=== PATIENT | male | born 1985 | race Caucasian/White ===

== ENCOUNTER 2017-02-26 15:14 | Inpatient (IN) | payer OTHER ==
[~2017-02-26] VITALS: Ht 177.8 cm; Wt 97.9 kg
[~2017-02-26 15:14] MED LIST: CEFAZOLIN IV 2,000 MG in DEXTROSE 5% 50ML 50 ML IV SCH
[2017-02-26] MEDS: HYDROmorphone INJ 1 MG/ML SYR IV PRN ×5 (15:38→23:30)
--- NOTE | 2017-02-26 15:49 | DIAGNOSTIC IMAGING REPORT ---
LEFT TIBIA/FIBULA 2 VIEWS ROUTINE CLINICAL HISTORY: 31 years-old Male presenting with left leg injury, fall. TECHNIQUE: Frontal and lateral views of the left lower leg were obtained. COMPARISON: None. FINDINGS: Comminuted fracture of the mid tibial diaphysis with a butterfly fracture fragment laterally. [place] lateral angulation at the fracture site. There is one half shaft width lateral displacement of the distal fracture fragment. Mildly comminuted mid diaphyseal fracture of the fibula with one shaft width anterior displacement of the distal fracture fragment and 2 to 3 cm of foreshortening. Pretibial soft tissue swelling and suggestion of subcutaneous emphysema suggests an open fracture. Knee joint and ankle mortise grossly intact. IMPRESSION: Open comminuted, displaced mid diaphyseal fractures of the tibia and fibula with apex lateral angulation at the tibial fracture with one half shaft width lateral displacement and displacement and foreshortening of the fibula further detailed above. Electronically signed by: Pedro Luis Teran M.D. 02/26/2017 3:47 PM Dictated Date/Time: 02/26/2017 3:45 PM
[2017-02-26 16:29] LABS: BASO % 0.1 %; BASO ABS # 0.02 K/uL (0-0.2); COMPLETE YES; EOS % 0.4 %; IG% 0.4 %; LYMPH % 12.5 %; LYMPH ABS # 1.74 K/uL (1.2-3.4); MEAN CELL VOLUME 83.5 fL (80-100); MEAN CORPUSCULAR HEMOGLOBIN 30.6 pg (25-34); MEAN CORPUSCULAR HGB CONC 36.7 g/dl (32-36); MEAN PLATELET VOLUME 10.2 fL (7.4-10.4); MONO % 6.8 %; NEUT % 79.8 %; PLATELET COUNT 207 K/uL (130-400); RED BLOOD COUNT 4.67 M/uL (4.7-6.1); WHITE BLOOD COUNT 13.91 K/uL (4.8-10.8)
[2017-02-26 16:38] LABS: INR 1.1 (0.9-1.1); PROTHROMBIN TIME (PATIENT) 11.4 SECONDS (9.0-12.0)
--- NOTE | 2017-02-26 16:49 | Orthopedic Consultation ---
Orthopedic Consultation Date of Consultation: Feb 26, 2017. Attending Physician: Reason for Consultation: Left tibia and fibula fx History of Present Illness 31 yo male playing kickball with boots on, caught his leg, twisted and felt a pop. Was unable to bear weight. Family History No pertinent family history Social History Smoking Status: Never Smoker Smokeless Tobacco Use: Yes Drug Use: none Marital Status: Allergies Coded Allergies: No Known Allergies (Unverified , 02/26/17) Home Medications No Active Prescriptions or Reported Meds Current Inpatient Medications Current Inpatient Medications Medications (Trade) Dose Ordered Sig/Yanna Route Start Time Stop Time Status Last Admin Dose Admin Hydromorphone HCl (Dilaudid Inj) 1 mg Q15M PRN IV 02/26/17 15:30 03/12/17 15:29 02/26/17 15:38 1 MG Review of Systems Constitutional: No fever, No chills Cardiovascular: No chest pain Abdomen: No pain Musculoskeletal: + joint pain, + swelling Physical Exam Date Time Temp Pulse Resp B/P (MAP) Pulse Ox O2 Delivery O2 Flow Rate FiO2 02/26/17 16:28 84 18 139/82 98 Room Air 02/26/17 15:45 89 02/26/17 15:26 37.5 78 20 163/78 99 Room Air General Appearance: WD/WN Head: normocephalic Eyes: normal inspection Neck: supple Respiratory/Chest: chest non-tender Cardiovascular: regular rate, rhythm Abdomen/GI: soft Extremities/Musculoskelatal: + swelling, + pertinent finding (LLE: TTP mid tibia. skin is intact, cr<2, toes mobile, calf soft) Laboratory Results Last 24 Hours Test 02/26/17 16:17 White Blood Count 13.91 K/uL Red Blood Count 4.67 M/uL Hemoglobin 14.3 g/dL Hematocrit 39.0 % Mean Corpuscular Volume 83.5 fL Mean Corpuscular Hemoglobin 30.6 pg Mean Corpuscular Hemoglobin Concent 36.7 g/dl Platelet Count 207 K/uL Mean Platelet Volume 10.2 fL Neutrophils (%) (Auto) 79.8 % Lymphocytes (%) (Auto) 12.5 % Monocytes (%) (Auto) 6.8 % Eosinophils (%) (Auto) 0.4 % Basophils (%) (Auto) 0.1 % Neutrophils # (Auto) 11.10 K/uL Lymphocytes # (Auto) 1.74 K/uL Monocytes # (Auto) 0.94 K/uL Eosinophils # (Auto) 0.06 K/uL Basophils # (Auto) 0.02 K/uL RDW Standard Deviation 37.4 fL RDW Coefficient of Variation 12.4 % Immature Granulocyte % (Auto) 0.4 % Immature Granulocyte # (Auto) 0.05 K/uL Prothrombin Time 11.4 SECONDS Prothromb Time International Ratio 1.1 Activated Partial Thromboplast Time 24.7 SECONDS Partial Thromboplastin Ratio 1.0 Assessment & Plan Mid shift left tibia and fibula fractures After my evaluation of the patient in the emergency department, I have elected to admit the patient and we'll plan for open reduction internal fixation of the left tibia.
[2017-02-26 16:52] LABS: ALT/SGPT 28 U/L (12-78); BLOOD UREA NITROGEN 21 mg/dl (7-18); BUN/CREATININE RATIO 15.8 (10-20); CALCIUM 8.3 mg/dl (8.5-10.1); CARBON DIOXIDE 27 mmol/L (21-32); CHLORIDE 108 mmol/L (98-107); GLUCOSE 94 mg/dl (70-99); POTASSIUM 3.7 mmol/L (3.5-5.1); SODIUM 141 mmol/L (136-145)
--- NOTE | 2017-02-26 16:53 | History and Physical ---
History & Physical Date Feb 26, 2017. Chief Complaint Left leg fracture History of Present Illness The patient is a 31 year old male with complaints of pain in the left leg. He was playing kickball and was wearing boots. He caught his leg wrong and twisted. He felt a pop in the leg. She was unable to bear weight after this injury. He was then brought to the emergency room where x-rays were obtained. He is currently complaining of pain in the left leg. He denies no some tingling extremity. He states that he previously injured his leg when he was about 2 or 3 years old. Past Medical/Surgical History Medical Problems: (1) Leg fracture (2) No chronic diseases present Surgical Problems: (1) History of appendectomy (2) History of cholecystectomy Allergies Coded Allergies: No Known Allergies (Unverified , 02/26/17) Home Medications No Active Prescriptions or Reported Meds Physical Examination Skin: warm/dry Eyes: normal inspection ENT: normal ENT inspection Head: normocephalic Respiratory/Chest: lungs clear Cardiovascular: regular rate, rhythm Extremities: + pertinent finding (left lower extremity: Tender to palpation mid tibia. Calf is soft. Light touch sensation and motor function distally are intact. Cap refill is less than 2 seconds.) Diagnosis Left midshaft tibia and fibula fractures Plan of Treatment Left midshaft tibia and fibula fractures X-rays demonstrate his fracture the mid aspect of the tibia as well as fibula. There is a butterfly fragment off of the tibia. Patient is in fair amount of pain currently. Given the nature of the injury and the location of the fracture my recommendation is for open reduction and internal fixation. Given his nothing by mouth status we'll plan on fracture fixation later tonight. Risks benefits and alternatives to surgery including but not limited to pain, stiffness, failure to relieve all symptoms, nonunion, need for revision surgery , DVT, damage to blood vessels, damage to nerves, risks of anesthesia were discussed with the patient and he wishes to proceed.
[2017-02-26 16:55] LABS: ALKALINE PHOSPHATASE 55 U/L (45-117); AST/SGOT 25 U/L (15-37)
[2017-02-26] MEDS ORDERED: ACETAMINOPHEN 325 MG TAB PO PRN (17:00)
[2017-02-26] MEDS ORDERED: MoRPHine SULFATE 4 MG/ML 1 ML CARP\\VIAL IV PRN (17:00)
[2017-02-26] MEDS ORDERED: METOCLOPRAMIDE HCL INJ 5 MG/ML 2 ML VIAL IV. PRN (17:00)
[2017-02-26] MEDS ORDERED: ZOLPIDEM TARTRATE 5 MG TAB PO PRN ×2 (17:00→23:00)
[2017-02-26] MEDS ORDERED: ONDANSETRON INJ 2 MG/ML 2 ML VIAL IV PRN ×2 (17:00→20:00)
[2017-02-26] MEDS ORDERED: MoRPHine SULFATE 2 MG/ML CARP IV PRN (17:00)
[2017-02-26] MEDS ORDERED: DiphenhydrAMINE HCL 50 MG/ML VIAL IV PRN ×2 (17:00→23:00)
[2017-02-26 17:14] VITALS: O2SAT 98
--- NOTE | 2017-02-26 18:25 | EMERGENCY ROOM VISIT NOTE ---
History Report prepared by Christos: Javier Kiser Under the Supervision of: Dr. Lucas Holland M.D. First contact with patient: 15:18 Stated Complaint: FALL/ TIB-FIB FX History of Present Illness The patient is a 31 year old male who presents to the Emergency Room with complaints of a sudden left leg injury that occurred prior to arrival today. The patient says that he was running and playing kickball when he felt a pop, and his left leg gave out. Per the nursing staff, the patient reported that the patient's leg went out on its own. Per EMS, the patient was given 100 mg Fentanyl, which the patient says helped relieve the pain, but currently, the patient says the pain is coming back again. He adds that he broke one of his legs when he was a young child. .He notes no chronic medical problems. Pt denies LOC, headache, visual changes, neck pain, chest pain, breathing difficulties, nausea, vomiting, abdominal pain, back pain, numbness, weakness, open wounds, active bleeding, or other complaints. Source of History: patient, EMS, nursing staff Onset: Prior to arrival today Position: leg (left) Quality: other (leg gave out while playing kickball) Timing: other (sudden) Modifying Factors (Relieving): other (Fentanyl) Note: Associated symptoms: Left leg pain. Review of Systems See HPI for pertinent positives and negatives. A total of ten systems were reviewed and were otherwise negative. Past Medical & Surgical Medical Problems: (1) Left tibial fracture (2) Leg fracture (3) No chronic diseases present Surgical Problems: (1) History of appendectomy (2) History of cholecystectomy Family History No pertinent family history Social History Smoking Status: Never Smoker Smokeless Tobacco Use: Yes Alcohol Use: none Marital Status: Housing Status: lives with family Occupation Status: employed Current/Historical Medications No Active Prescriptions or Reported Meds Allergies Coded Allergies: No Known Allergies (Unverified , 02/26/17) Physical Exam Vital Signs Date Time Temp Pulse Resp B/P (MAP) Pulse Ox O2 Delivery O2 Flow Rate FiO2 02/26/17 16:28 84 18 139/82 98 Room Air 02/26/17 15:45 89 02/26/17 15:26 37.5 78 20 163/78 99 Room Air Physical Exam GENERAL: Awake, alert, uncomfortable appearing, moderate distress HEAD: Normocephalic, atraumatic. No kenyon sign. No raccoon eyes. EYES: Normal conjunctiva. PERRL. EARS: External ears normal. Right TM normal. Left TM normal. NOSE: Atraumatic OROPHARYNX: Lips, tongue, and mucosa unremarkable. No erythema or exudate. NECK: Supple. No tracheal deviation or JVD. No posterior midline tenderness. No step offs noted. RESPIRATORY: CTA bilaterally CARDIAC: Tachycardic rate, normal rhythm. ABDOMEN: Inspection reveals no abnormalities. Soft, non distended. No tenderness to palpation. No hernias. BACK: No midline step offs or tenderness to palpation. Unremarkable. PELVIS: Stable to rock. SKIN: Normal. LYMPH: No adenopathy. MUSCULOSKELETAL: Upper extremities are atraumatic. Deformity to left vargas, neurovascularly intact, no open wounds. NEURO: GCS 15. Normal sensorium. No sensory or motor deficits noted. Medical Decision & Procedures ER Provider Diagnostic Interpretation: X-ray: Per my interpretation, radiologist review. LEFT TIBIA/FIBULA 2 VIEWS ROUTINE CLINICAL HISTORY: 31 years-old Male presenting with left leg injury, fall. TECHNIQUE: Frontal and lateral views of the left lower leg were obtained. COMPARISON: None. FINDINGS: Comminuted fracture of the mid tibial diaphysis with a butterfly fracture fragment laterally. [place] lateral angulation at the fracture site. There is one half shaft width lateral displacement of the distal fracture fragment. Mildly comminuted mid diaphyseal fracture of the fibula with one shaft width anterior displacement of the distal fracture fragment and 2 to 3 cm of foreshortening. Pretibial soft tissue swelling and suggestion of subcutaneous emphysema suggests an open fracture. Knee joint and ankle mortise grossly intact. IMPRESSION: Open comminuted, displaced mid diaphyseal fractures of the tibia and fibula with apex lateral angulation at the tibial fracture with one half shaft width lateral displacement and displacement and foreshortening of the fibula further detailed above. Electronically signed by: Pedro Luis Teran M.D. 02/26/2017 3:47 PM Dictated Date/Time: 02/26/2017 3:45 PM Laboratory Results 02/26/17 16:17 Red Blood Count 4.67, Mean Corpuscular Volume 83.5, Mean Corpuscular Hemoglobin 30.6, Mean Corpuscular Hemoglobin Concent 36.7, Mean Platelet Volume 10.2, Neutrophils (%) (Auto) 79.8, Lymphocytes (%) (Auto) 12.5, Monocytes (%) (Auto) 6.8, Eosinophils (%) (Auto) 0.4, Basophils (%) (Auto) 0.1, Neutrophils # (Auto) 11.10, Lymphocytes # (Auto) 1.74, Monocytes # (Auto) 0.94, Eosinophils # (Auto) 0.06, Basophils # (Auto) 0.02 02/26/17 16:17 Test 02/26/17 16:17 White Blood Count 13.91 K/uL (4.8-10.8) Red Blood Count 4.67 M/uL (4.7-6.1) Hemoglobin 14.3 g/dL (14.0-18.0) Hematocrit 39.0 % (42-52) Mean Corpuscular Volume 83.5 fL (80-100) Mean Corpuscular Hemoglobin 30.6 pg (25-34) Mean Corpuscular Hemoglobin Concent 36.7 g/dl (32-36) Platelet Count 207 K/uL (130-400) Mean Platelet Volume 10.2 fL (7.4-10.4) Neutrophils (%) (Auto) 79.8 % Lymphocytes (%) (Auto) 12.5 % Monocytes (%) (Auto) 6.8 % Eosinophils (%) (Auto) 0.4 % Basophils (%) (Auto) 0.1 % Neutrophils # (Auto) 11.10 K/uL (1.4-6.5) Lymphocytes # (Auto) 1.74 K/uL (1.2-3.4) Monocytes # (Auto) 0.94 K/uL (0.11-0.59) Eosinophils # (Auto) 0.06 K/uL (0-0.5) Basophils # (Auto) 0.02 K/uL (0-0.2) RDW Standard Deviation 37.4 fL (36.4-46.3) RDW Coefficient of Variation 12.4 % (11.5-14.5) Immature Granulocyte % (Auto) 0.4 % Immature Granulocyte # (Auto) 0.05 K/uL (0.00-0.02) Prothrombin Time 11.4 SECONDS (9.0-12.0) Prothromb Time International Ratio 1.1 (0.9-1.1) Activated Partial Thromboplast Time 24.7 SECONDS (21.0-31.0) Partial Thromboplastin Ratio 1.0 Anion Gap 6.0 mmol/L (3-11) Est Creatinine Clear Calc Drug Dose 94.8 ml/min Estimated GFR () 83.1 Estimated GFR (Non- 71.7 BUN/Creatinine Ratio 15.8 (10-20) Calcium Level 8.3 mg/dl (8.5-10.1) Total Bilirubin 0.4 mg/dl (0.2-1) Direct Bilirubin < 0.1 mg/dl (0-0.2) Aspartate Amino Transf (AST/SGOT) 25 U/L (15-37) Alanine Aminotransferase (ALT/SGPT) 28 U/L (12-78) Alkaline Phosphatase 55 U/L (45-117) Total Protein 6.7 gm/dl (6.4-8.2) Albumin 3.5 gm/dl (3.4-5.0) Lipase 142 U/L (73-393) Laboratory results reviewed by me Medications Administered Medications (Trade) Dose Ordered Sig/Yanna Route Start Time Stop Time Status Last Admin Dose Admin Hydromorphone HCl (Dilaudid Inj) 1 mg Q15M PRN IV 02/26/17 15:30 03/12/17 15:29 02/26/17 17:14 1 MG Procedure Splinting Indication: Fracture Verbal consent obtained. Risks and benefits were explained with the usual customary discussion. The injured extremity was identified. The patient was prepped and measured for the placement of a posterior short leg ortho-glass splint. Splint applied in the standard fashion over a layer of webril and secured using an elastic bandage. Set into a position of function. Normal neurovascular status after placement verified by me. The patient tolerated the procedure well and the care of the splint was discussed with the patient/ family. No complications. ED Course 1521: The patient was evaluated in room B7. A complete history and physical exam was performed. 1530: Ordered Dilaudid Inj 1 mg IV PRN. 1553: I discussed the patient with Dr. Ho - [facility] - he will come see the patient. 1625: I reevaluated the patient and he is resting. The patient verbally expressed understanding and agreement of the treatment plan. The patient will be evaluated for further treatment by the surgeon. 1630: I discussed the patient with Dr. [facility] - he will evaluate the patient for further treatment. Medical Decision Triage Nursing notes reviewed and agree them. Additional history obtained from his and from EMS The patient's history was concerning for traumatic injury. Differential diagnosis: Etiologies such as fracture, dislocation, neurovascular compromise, compartment syndrome, soft tissue injury, as well as others were entertained. Physical examination: Consistent with an isolated left leg injury. ER treatment provided: IV Dilaudid Splinting On reassessment the patient felt better. Diagnostics interpreted by me: The labs revealed an unremarkable CBC, coags, and chemistry panel except for mild leukocytosis which I believe is a stress response. Imaging studies: Xrays as above. The patient has an isolated left tib-fib fracture which is closed. He is neurologically intact. Consultation: A consultation was placed with the orthopedist, Dr. Ho. The case was discussed and diagnostics were reviewed. The patient was evaluated in the ER for further treatment. He is admitting the patient. Medication Reconcilliation Current Medication List: was personally reviewed by me No daily medications on list. Blood Pressure Screening Patient's blood pressure: Elevated blood pressure Blood pressure disposition: Elevated BP felt to be situational Consults Time Called: 1540 Consulting Physician: Dr. [facility] Returned Call: 1553 I discussed the patient with Dr. [facility] - he will come see the patient. Additional Consults: Time Called: 1618 Consulted Physician: Dr. Vic Singers Returned Call: 1630 Additional Comments: I discussed the patient with Dr. Vic Singers - he will evaluate the patient for further treatment. Impression Primary Impression: Left tibial fracture Additional Impression: Left fibular fracture Scribe Attestation The scribe's documentation has been prepared under my direction and personally reviewed by me in its entirety. I confirm that the note above accurately reflects all work, treatment, procedures, and medical decision making performed by me. Departure Information Dispostion Being Evaluated By Surgeon Prescriptions No Active Prescriptions or Reported Meds Problem Qualifiers
[2017-02-26 18:30] VITALS: BP 148/77; TEMP 37.5; Ht 177.8 cm; Wt 97.9 kg
[2017-02-26 18:55] LABS: URINE APPEARANCE CLEAR (CLEAR); URINE BILIRUBIN NEG (NEG); URINE COLOR YELLOW; URINE NITRITE NEG (NEG); URINE SPECIFIC GRAVITY 1.017 (1.000-1.030); UROBILINOGEN NEG (NEG); ZZUR CULT IF INDIC CLEAN CATCH NO
[2017-02-26 19:00] LABS: MANUAL MICROSCOPIC REQUIRED? NO; REVIEW REQ? NO
[2017-02-26] MEDS ORDERED: PROPOFOL IV EMULSION 10 MG/ML 20 ML VIAL IV ONE (19:07)
[2017-02-26] MEDS ORDERED: LIDOCAINE HCL 2% 2 ML VIAL (20MG/ML) ONE (19:07)
[2017-02-26] MEDS ORDERED: SUCCINYLCHOLINE CHLORIDE 20 MG/ML 10 ML VIAL IV ONE (19:07)
[2017-02-26] MEDS ORDERED: D5W AND 1/2NSS 1,000 ML IV SCH (19:15)
[2017-02-26] MEDS ORDERED: MIDAZOLAM HCL 1 MG/ML 2ML VIAL ONE (19:31)
[2017-02-26] MEDS ORDERED: FENTANYL CITRATE INJ 50 MCG/1 ML 2 ML VIAL ONE ×2 (19:31→22:54)
[2017-02-26] MEDS ORDERED: KETOROLAC TROMETHAMINE 30 MG/ML VIAL IV. PRN (20:00)
[2017-02-26] MEDS ORDERED: PROMETHAZINE HCL INJ 12.5 MG in SODIUM CHLORIDE 0.9% 50ML 50 ML IV PRN (20:00)
[2017-02-26] MEDS ORDERED: ATROPINE SULFATE 0.1 MG/ML 5ML SYR IV PRN (20:00)
[2017-02-26] MEDS ORDERED: EpHEDrine SULFATE INJ 50 MG/ML AMP IV PRN (20:00)
[2017-02-26] MEDS ORDERED: CEFAZOLIN SOD 1 GM VIAL ONE ×2 (20:41)
[2017-02-26] MEDS ORDERED: EpHEDrine SULFATE INJ 50 MG/ML AMP ONE (21:07)
[2017-02-26] MEDS ORDERED: HYDROmorphone INJ 2 MG/ML SYR/VIAL ONE ×2 (21:10→23:19)
[2017-02-26] MEDS ORDERED: ONDANSETRON INJ 2 MG/ML 2 ML VIAL ONE (22:14)
--- NOTE | 2017-02-26 22:27 | DIAGNOSTIC IMAGING REPORT ---
Radiology LEFT TIBIA/FIBULA 2 VIEWS ROUTINE CLINICAL HISTORY: 31 years-old Male presenting with LT TIBIAL NAIL. TECHNIQUE: 6 fluoroscopic spot image(s) obtained as part of an intraoperative procedure. COMPARISON: Radiographs performed earlier the same day. FINDINGS/IMPRESSION: Interval placement of an intramedullary nail with interlocking screw fixation across the comminuted mid diaphyseal tibia fracture. Butterfly fracture fragment is now in anatomic alignment. The mid diaphyseal fibular fracture is also in anatomic alignment. Please see surgical report for further details. Fluoroscopy dosage (mGy): Not available. Fluoroscopy time: 3 minutes 12 seconds. Number of fluoroscopic spot images: 6. Electronically signed by: Pedro Luis Teran M.D. 02/26/2017 10:26 PM Dictated Date/Time: 02/26/2017 10:24 PM
--- NOTE | 2017-02-26 22:51 | [facility] Operative Report ---
Operative Report Operative Date Feb 26, 2017. Pre-Operative Diagnosis Left midshaft tibia and fibula fractures Post-Operative Diagnosis Same as preoperative diagnosis Procedure(s) Performed Intramedullary nailing left tibia, closed treatment left fibula fracture Surgeon Dr. Ho Personal Service Representative Surgeon(s) CARLOS A Ruggiero Estimated Blood Loss 20ml Findings As above Specimens None Drains none Anesthesia Gen. Complication(s) None Disposition Recovery Room / PACU Indications 31-year-old male who tripped while playing kickball. He sustained a midshaft tibia and fibula fractures. He wishes to proceed with operative fixation. Description of Procedure Risks, benefits, and alternatives to surgery including but not limited to infection, pain, stiffness, nonunion, need for revision surgery, DVT, damage to blood vessels, damage to nerves, risks of anesthesia were discussed with the patient and they wished to proceed. The patient was identified and laterality was confirmed and marked. The patient received a preoperative antibiotic and was transferred to the operating room and placed in supine position and induced into general endotracheal anesthesia. A well-padded tourniquet was placed in the leg. The limb was then prepped and draped in the usual standard manner with ChloraPrep. The limb was exsanguinated and the tourniquet was inflated. I made a longitudinal incision medial to the patella. I sharply incised through the skin and then used Bovie electrocautery to achieve hemostasis. I incised through the patellar tendon peritenon and mobilized access to the joint. Then under fluoroscopic guidance I placed a guidepin aligning with the lateral tibial spine. Once I was satisfied with the pin placement I advanced it distally and then over reamed over the guidepin. I then passed a reaming alignment jignesh down the tibia and then I reduced the fracture and advanced the guidepin. I ensured that the guidepin was advanced appropriately distally. I then measured for the length of the tibial nail. I then sequentially reamed up to size [address] a size 10 nail. I then reamed to 12 mm reamer proximally. I then advanced the nail over the guide jignesh. Implant was a Synthes intramedullary tibial nail size 375 mm x 10 mm I confirmed proper impaction of the nail on the lateral view. I then placed 2 interlocking screws proximally in a static and dynamic mode. I then obtained perfect circles for visualization of the distal interlocking screws. I placed 2 distal interlocking screws. I confirmed maintenance of reduction on AP and lateral fluoroscopy views and was satisfied with fracture reduction as well as placement of the implants. The wounds were thoroughly irrigated. The arthrotomy was closed with interrupted #1 Vicryl suture. Subcutaneous tissues closed with interrupted 2-0 Vicryl suture. The skin was closed with interrupted 4-0 nylon. A sterile dressing was applied and a AO splint placed. All needle and sponge counts were correct at the end of the procedure. The patient was transferred to the PACU in stable condition without apparent complication. I attest to the content of the Intraoperative Record and any orders documented therein. Any exceptions are noted below.
[2017-02-26] MEDS: FENTANYL CITRATE INJ 50 MCG/1 ML 2 ML VIAL IV PRN ×3 (23:00→23:10)
[2017-02-26] MEDS ORDERED: ALUMINUM/MAGNESIUM/SIMETH (MAALOX MAX) 30 ML UDC PO PRN (23:00)
[2017-02-26] MEDS ORDERED: OXYCODONE HCL IR 5 MG TAB (IMMEDIATE RELEASE) PO PRN (23:00)
[2017-02-26] MEDS ORDERED: NO NSAIDS SCH (23:00)
[2017-02-26] MEDS ORDERED: MAGNESIUM HYDROXIDE SUSP 30 ML UDC PO PRN (23:00)
[2017-02-26] MEDS: ACETAMINOPHEN 500 MG TAB PO SCH (23:00)
--- NOTE | 2017-02-26 23:41 | Anesthesiology Progress Note ---
Anesthesia Post Op Note Date & Time Feb 26, 2017 at 23:41 Vital Signs Pain Intensity: 9 Vital Signs Past 12 Hours Date Time Temp Pulse Resp B/P (MAP) Pulse Ox O2 Delivery O2 Flow Rate FiO2 02/26/17 23:34 117 10 98 02/26/17 23:34 117 10 02/26/17 23:30 131/69 02/26/17 23:26 116 12 130/71 97 02/26/17 23:26 117 12 97 02/26/17 23:21 119 12 133/76 98 02/26/17 23:21 118 12 02/26/17 23:15 133/73 02/26/17 23:11 110 12 134/81 99 02/26/17 23:11 111 12 98 02/26/17 23:06 108 15 100 02/26/17 23:06 108 15 02/26/17 23:05 146/92 02/26/17 23:00 145/91 02/26/17 22:56 115 16 100 02/26/17 22:56 111 22 100 02/26/17 22:53 149/99 02/26/17 22:51 126 20 142/107 100 02/26/17 22:51 36.3 116 16 149/96 99 Oxymask 10 02/26/17 22:51 127 20 02/26/17 18:30 Room Air 02/26/17 18:30 37.5 16 148/77 Room Air 02/26/17 17:14 100 16 148/77 98 Room Air 02/26/17 16:28 84 18 139/82 98 Room Air 02/26/17 15:45 89 02/26/17 15:26 37.5 78 20 163/78 99 Room Air Notes Mental Status: alert / awake / arousable, participated in evaluation Pt Amnestic to Procedure: Yes Nausea / Vomiting: adequately controlled Pain: adequately controlled Airway Patency, RR, SpO2: stable & adequate BP & HR: stable & adequate Hydration State: stable & adequate Anesthetic Complications: no major complications apparent Doing well. VSS.
[2017-02-27] VITALS (7 sets, daily range): BP systolic 111–139; BP diastolic 66–81; PULSE 96–118; TEMP 36.4–37.3; O2SAT 94–98
[2017-02-27] MEDS: OXYCODONE/ACETAMINOPHEN 5-325 TAB PO PRN ×2 (02:01→12:07)
[2017-02-27] MEDS ORDERED: D5W AND 1/2NSS 1,000 ML IV SCH ×2 (03:15→09:00)
[2017-02-27] MEDS: CEFAZOLIN IV 2,000 MG in DEXTROSE 5% 50ML 50 ML IV SCH ×2 (03:27→11:58)
[2017-02-27] MEDS ORDERED: CEFAZOLIN 2000 MG/60 ML D5W 60 ML IV SCH (06:00)
[2017-02-27] MEDS: ACETAMINOPHEN 500 MG TAB PO SCH ×2 (06:29→12:08)
[2017-02-27 08:54] LABS: HEMATOCRIT 37.1 % (42-52); MEAN CELL VOLUME 84.5 fL (80-100); MEAN CORPUSCULAR HEMOGLOBIN 30.3 pg (25-34); MEAN CORPUSCULAR HGB CONC 35.8 g/dl (32-36); MEAN PLATELET VOLUME 10.1 fL (7.4-10.4); PLATELET COUNT 195 K/uL (130-400); RED BLOOD COUNT 4.39 M/uL (4.7-6.1); WHITE BLOOD COUNT 8.08 K/uL (4.8-10.8)
[2017-02-27] MEDS ORDERED: MULTIVITAMIN TAB PO SCH (09:00)
[2017-02-27] MEDS ORDERED: PANTOprazole SOD 40 MG TAB PO SCH ×2 (09:00)
[2017-02-27] MEDS ORDERED: ASPIRIN 325 MG ECTAB PO SCH (09:00)
[2017-02-27 09:37] LABS: BUN/CREATININE RATIO 9.3 (10-20); CALCIUM 8.2 mg/dl (8.5-10.1); CREATININE 1.1 mg/dl (0.60-1.40); POTASSIUM 3.5 mmol/L (3.5-5.1)
--- NOTE | 2017-02-27 09:40 | Orthopedic Progress Note ---
Orthopedic Progress Note Date of Service Feb 27, 2017. Subjective Post OP Day: 1 Reports: feeling well, pain controlled w PO medications, Denies: chest pain, SOB , nausea / vomiting, light headedness, calf pain Objective calves soft nontender, N/V intact, splint C/D/I, capillary refill less than 2 sec., A&O x3, toes mobile Date Time Temp Pulse Resp B/P (MAP) Pulse Ox O2 Delivery O2 Flow Rate FiO2 02/27/17 07:43 37.1 96 15 120/77 (91) 97 Room Air 02/27/17 07:40 Room Air 02/27/17 03:00 37.2 106 18 111/70 (84) 96 Room Air 02/27/17 02:00 37.0 114 18 123/76 (92) 98 Room Air 02/27/17 01:05 36.8 111 18 135/81 (99) 98 Nasal Cannula 2.0 02/27/17 00:31 36.4 113 20 139/79 (99) 97 Nasal Cannula 2.0 02/27/17 00:04 Nasal Cannula 3.0 02/27/17 00:00 37.3 118 20 128/66 (86) 94 Nasal Cannula 3.0 02/27/17 00:00 Nasal Cannula 3.0 02/26/17 23:50 36.3 118 19 107/67 96 Nasal Cannula 2 02/26/17 23:43 117 15 02/26/17 23:43 116 15 96 02/26/17 23:40 116 14 116/68 97 02/26/17 23:40 116 14 02/26/17 23:36 128/65 02/26/17 23:34 117 10 98 02/26/17 23:34 117 10 02/26/17 23:30 131/69 02/26/17 23:26 116 12 130/71 97 02/26/17 23:26 117 12 97 02/26/17 23:21 119 12 133/76 98 02/26/17 23:21 118 12 02/26/17 23:15 133/73 02/26/17 23:11 110 12 134/81 99 02/26/17 23:11 111 12 98 02/26/17 23:06 108 15 100 02/26/17 23:06 108 15 02/26/17 23:05 146/92 02/26/17 23:00 145/91 02/26/17 22:56 115 16 100 02/26/17 22:56 111 22 100 02/26/17 22:53 149/99 02/26/17 22:51 126 20 142/107 100 02/26/17 22:51 36.3 116 16 149/96 99 Oxymask 10 02/26/17 22:51 127 20 02/26/17 18:30 Room Air 02/26/17 18:30 37.5 16 148/77 Room Air 02/26/17 17:14 100 16 148/77 98 Room Air 02/26/17 16:28 84 18 139/82 98 Room Air 02/26/17 15:45 89 02/26/17 15:26 37.5 78 20 163/78 99 Room Air Laboratory Results 24 Hours: Test 02/26/17 16:17 02/27/17 08:23 White Blood Count 13.91 K/uL Red Blood Count 4.67 M/uL Hemoglobin 14.3 g/dL 13.3 g/dL Hematocrit 39.0 % 37.1 % Mean Corpuscular Volume 83.5 fL Mean Corpuscular Hemoglobin 30.6 pg Mean Corpuscular Hemoglobin Concent 36.7 g/dl Platelet Count 207 K/uL Mean Platelet Volume 10.2 fL Neutrophils (%) (Auto) 79.8 % Lymphocytes (%) (Auto) 12.5 % Monocytes (%) (Auto) 6.8 % Eosinophils (%) (Auto) 0.4 % Basophils (%) (Auto) 0.1 % Neutrophils # (Auto) 11.10 K/uL Lymphocytes # (Auto) 1.74 K/uL Monocytes # (Auto) 0.94 K/uL Eosinophils # (Auto) 0.06 K/uL Basophils # (Auto) 0.02 K/uL Prothromb Time International Ratio 1.1 Prothrombin Time 11.4 SECONDS Assessment & Plan Assessment: POD #1 ORIF left tibia/fibula fracture Plan: DVT- ASA NWB left LE Plan- DC to home today Patient seen and examined, agree with above Inhouse Planning Pain Management: Percocet DVT Prophylaxis: TEDs, ASA Discharge Planning Discharge Planning: home Pain Management: Percocet DVT Prophylaxis: TEDs
[2017-02-27] MEDS ORDERED: MULT-890 PO (09:42)
[2017-02-27] MEDS ORDERED: ASPEC325 PO (09:42)
[2017-02-27] MEDS ORDERED: OXYC-57 PO (09:42)
--- NOTE | 2017-02-27 09:47 | Discharge Instructions ---
Discharge Instructions Date of Service Feb 27, 2017. Admission Reason for Admission: Left Tibial Fx Discharge Discharge Diagnosis / Problem: s/p left ORIF tibia fracture Discharge Goals Goal(s): Decrease discomfort, Improve function, Increase independence Activity Recommendations Activity Limitations: per Instructions/Follow-up section Weightbearing Status: Left non-weightbearing ACTIVITY RECOMMENDATIONS: * You are currently NON weightbearing to that leg SPECIAL CARE INSTRUCTIONS: * Keep splint in place * Some swelling is natural especially after walking. When resting, keep your foot elevated above the level of your heart. * Call the doctor's office at if you notice increased drainage, fever over 101 degrees F. or severe constant pain. BANDAGE: * Leave bandage/cast in place unless otherwise directed. * Keep bandage/cast dry at all times. FOLLOW UP VISIT: If appointment is not already scheduled: Please call [facility] to make a follow-up appointment after your surgery at at 10-[address] Ho . Current Hospital Diet Patient's current hospital diet: Regular Diet Discharge Diet Recommended Diet: Regular Diet Procedures Procedures Performed: Intramedullary nailing left tibia, closed treatment left fibula fracture Pending Studies Studies pending at discharge: no Medical Emergencies . Who to Call and When: Medical Emergencies: If at any time you feel your situation is an emergency, please call 911 immediately. . Non-Emergent Contact Non-Emergency issues call your: Primary Care Provider . "Provider Documentation" section prepared by Radha Meyer. . VTE Core Measure Inpt VTE Proph given/why not?: Other Anticoagulation, T.E.D. Lizz [facility] Drug Monitoring Program Search Results: patient reviewed within database, no issues identified
--- NOTE | 2017-03-15 16:03 | Discharge Summary ---
Orthopedic Discharge Summary Admission Date/Reason Feb 26, 2017 at 16:58 Left Tibial Fx. Discharge Date/Disposition Feb 27, 2017 Home Diagnosis Principal Diagnosis: Left tibial fracture and fibula fracture Procedure(s) Performed Left ORIF tibia IM nail Medication Reconciliation New Medications: Aspirin (Aspirin) 325 Mg Ectab 325 MG PO BID for 30 Days Multiple Vitamin (Daily-[place]) 1 Tab Tab 1 TAB PO QAM for 30 Days, #30 TAB Oxycodone/Acetaminophen 5MG/325MG (Percocet 5MG/325MG) Tab 1-2 TAB PO Q4H PRN for Pain, #60 TAB PAIN Admission Physical Exam As per Admitting History & Physical. Discharge Instructions Please refer to the electronic Patient Visit Report (Discharge Instructions) for additional information.
== END 2017-02-27 13:51 | disposition home or self-care (01) | DRG 494 ==
LOC: EDBD 15:14 → C.EDB 15:16 → C.MSN 16:58 → ENRESERV 17:12
PROVIDERS: ADMIT Orthopaedic Surgery; ATTEND Orthopaedic Surgery
PROC: 2W3RX1Z Immobilization of Left Lower Leg using Splint (ICD-10-PCS; 2017-02-26)
PROC: 0QSH36Z Reposition Left Tibia with Intramedullary Internal Fixation Device, Percutaneous Approach (ICD-10-PCS; principal; 2017-02-26 20:30)
PROC: 0QSKXZZ Reposition Left Fibula, External Approach (ICD-10-PCS; principal; 2017-02-26 20:30)
DX: S82.292A Other fracture of shaft of left tibia, initial encounter for closed fracture (principal); S82.402A Unspecified fracture of shaft of left fibula, initial encounter for closed fracture; Y92.328 Other athletic field as the place of occurrence of the external cause; X50.1XXA Overexertion from prolonged static or awkward postures, initial encounter; Y93.6A Activity, physical games generally associated with school recess, summer camp and children